=== PATIENT | male | born 1955 | race Caucasian/White ===

== ENCOUNTER 2019-07-19 00:57 | Emergency (ER) | payer SELFPAY ==
[2019-07-19] MEDS ORDERED: Nitroglycerin 0.4 MG Tab.SL ONE (01:01)
[2019-07-19] MEDS ORDERED: Clopidogrel 75 MG Tab ONE (01:01)
[2019-07-19] MEDS ORDERED: Tenecteplase 50 MG Kit ONE (01:02)
[2019-07-19] MEDS ORDERED: Heparin Sodium 5,000 Units/ML Vial ONE (01:02)
[2019-07-19] MEDS ORDERED: Morphine 2 MG/ML Syringe ONE (01:02)
[2019-07-19] MEDS ORDERED: Ondansetron 4 MG/2 ML SDV ONE (01:02)
[2019-07-19] MEDS ORDERED: Heparin Sod,Pork In 0.45% Nacl 25,000 UNIT/500 ML IV.SOLN IV ONE (01:02)
--- NOTE | 2019-07-19 01:04 | EDM.PDOC ---
ED HPI GENERAL MEDICAL PROBLEM - General Chief Complaint: Chest Pain Stated Complaint: AMB Time Seen by Provider: 07/19/19 01:04 - History of Present Illness INITIAL COMMENTS - FREE TEXT/NARRATIVE: HISTORY AND PHYSICAL: History of present illness: Patient's a 63-year-old male history of coronary artery disease including multiple prior myocardial infarctions most recently 3 years prior was been stented 2 presents with concern of chest pain that occurred when he was jacking up a car when he developed chest pain and back discomfort and some mild shortness of breath and diaphoresis he still has pain on arrival here. Review of systems: As per history of present illness and below otherwise all systems reviewed and negative. Past medical history: As per history of present illness and as reviewed below otherwise noncontributory. Surgical history: As per history of present illness and as reviewed below otherwise noncontributory. Social history: No reported history of drug or alcohol abuse. Family history: As per history of present illness and as reviewed below otherwise noncontributory. Physical exam: HEENT: Atraumatic, normocephalic, pupils reactive, negative for conjunctival pallor or scleral icterus, mucous membranes moist, throat clear, neck supple, nontender, trachea midline. Lungs: Clear to auscultation, breath sounds equal bilaterally, chest nontender. Heart: S1S2, regular, negative for clicks, rubs, or JVD. Abdomen: Soft, nondistended, nontender. Negative for masses or hepatosplenomegaly. Negative for costovertebral tenderness. Pelvis: Stable nontender. Genitourinary: Deferred. Rectal: Deferred. Extremities: Atraumatic, negative for cords or calf pain. Neurovascular unremarkable. Neuro: Awake, alert, oriented. Cranial nerves II through XII unremarkable. Cerebellum unremarkable. Motor and sensory unremarkable throughout. Exam nonfocal. Diagnostics: CBC CMP troponin PT/INR chest x-ray EKG Therapeutics: IV O2 monitor thrombolytic protocol initiated Impression: #1 acute myocardial infarction Definitive disposition and diagnosis as appropriate pending reevaluation and review of above. - Related Data Allergies Allergy/AdvReac Type Severity Reaction Status Date / Time Sulfa (Sulfonamide Allergy Rash Verified 07/19/19 01:03 Antibiotics) Home Meds: Home Meds Simvastatin 20 mg PO DAILY 07/19/19 [History] ED ROS GENERAL - Review of Systems Review Of Systems: ROS reveals no pertinent complaints other than HPI. ED EXAM, GENERAL - Physical Exam Exam: See Below (See dictation) Departure - Departure Time of Disposition: 01:04 Disposition: DC/Tfer to Acute Hospital 02 Condition: Critical Clinical Impression: Acute myocardial infarction - Discharge Information
[2019-07-19] MEDS ORDERED: Nitroglycerin 0.4 MG Tab.SL SL PRN (01:48)
[2019-07-19] MEDS ORDERED: Tenecteplase 50 MG Kit IV STA (01:48)
[2019-07-19] MEDS ORDERED: Clopidogrel 75 MG Tab PO ONE (01:48)
[2019-07-19] MEDS ORDERED: Ondansetron 4 MG/2 ML SDV IVPUSH ONE (01:48)
[2019-07-19 01:49] LABS: CHLORIDE,CL 100 mmol/L (98-107); SODIUM,NA 137 mmol/L (136-148)
--- NOTE | 2019-07-19 01:50 | CR ---
HISTORY: Chest pain COMPARISON: None available. FINDINGS: A portable erect AP view of the chest was obtained at 0120 hours. The lungs are clear. No focal or diffuse infiltrates are present. The heart is mildly enlarged. There are sternal wires from median sternotomy. The mediastinum is otherwise normal in appearance. The osseous structures are normal in appearance for the patient`s age. IMPRESSION: Mild cardiomegaly. Otherwise no active disease seen in the chest. Dictated by Noel Anne MD @ Jul 19 2019 1:44AM Signed by Dr. Noel Anne @ Jul 19 2019 1:48AM
[2019-07-19] MEDS ORDERED: Heparin Sodium 5,000 Units/ML Vial IVPUSH ONE (01:58)
[2019-07-19] MEDS ORDERED: Heparin Sod,Pork In 0.45% Nacl 25,000 UNIT/500 ML IV.SOLN IV SCH (02:00)
[2019-07-20] MEDS ORDERED: Morphine 2 MG/ML Syringe IVPUSH ONE (22:00)
== END 2019-07-19 01:35 ==
LOC: MW.ED 00:57
DX: I21.9 Acute myocardial infarction, unspecified (principal); Z88.2 Allergy status to sulfonamides; Z79.899 Other long term (current) drug therapy
CPT/HCPCS: 36415; 71045; 80053; 84484; 85025; 85610; 93005; 96365; 96374; 96375; 99285; A9270; J1644; J2405; J3101